=== PATIENT | female | born 1995 | race Native Hawaiian/Other Pacific Islander ===

== ENCOUNTER 2023-08-22 16:25 | Emergency (ER) | payer OTHER ==
[~2023-08-22] VITALS: Ht 170.2 cm; Wt 99.8 kg
[2023-08-22 16:27] VITALS: TEMP 98.1
[2023-08-22 17:45] VITALS: BP 129/89
== END 2023-08-22 17:46 | disposition short-term general hospital (02) ==
LOC: ED 16:25
DX: R10.9 Unspecified abdominal pain (principal); N89.8 Other specified noninflammatory disorders of vagina; Z33.1 Pregnant state, incidental
CPT/HCPCS: 81000; 81025; 87077; 87086; 87088; 87186; 99284